=== PATIENT | female | born 1995 | race Hispanic/Latino ===

== ENCOUNTER 2019-01-02 14:26 | Inpatient (IN) | payer BC, OTHER ==
--- NOTE | ~2019-01-02 | OR ---
[facility] [address] [place], [place] [address] Draft DATE OF OPERATION: 01/02/2019 SURGEON: Simone Hurley DO PREOPERATIVE DIAGNOSES: 1. Intrauterine at 35 weeks. 2. Preeclampsia with severe features. 3. Unfavorable cervix. 4. Gestational diabetes mellitus, diet controlled. 5. Morbid obesity. POSTOPERATIVE DIAGNOSES: 1. Intrauterine at 35 weeks. 2. Preeclampsia with severe features. 3. Unfavorable cervix. 4. Gestational diabetes mellitus, diet controlled. 5. Morbid obesity. PROCEDURE PERFORMED: Primary low transverse delivery. CARD DEALER: Dereck King MD. ANESTHESIA: Spinal. ESTIMATED BLOOD LOSS: 500 cc. COMPLICATIONS: None. SPECIMENS: None. FINDINGS: Delivery of viable male in the PAYTON position. Weight 5 pounds 11 ounces with nuchal cord x2. Apgars of 6, 7, and 8. Normal uterus, tubes, and ovaries. PATIENT NAME: TOR BANKS OPERATIVE REPORT DATE OF : [birth year] REPORT #: [id number] PHYSICIAN: SIMONE HURLEY DO PCP: NO PRIMARY CARE PHYSICIAN REPORT IS CONFIDENTIAL AND NOT TO BE RELEASED WITHOUT AUTHORIZATION [facility] [address] [place], [place] [address] Draft INDICATIONS: Ms. Banks is a very pleasant 23-year-old G1, P0, white female with intrauterine at 35 weeks and 2 days gestation. She was diagnosed with preeclampsia without severe features one week ago and has been monitoring blood pressures and labs. She had no severe findings until she presented to the office today for routine OB visit. Severe blood pressures were noted. She was sent to Labor and Delivery, where the patient again had severe blood pressures that were controlled with IV labetalol. Cervix was closed, thick, and high. She was started on magnesium per protocol. We discussed options of protracted induction of labor versus primary low transverse delivery. The patient elects for primary . Risks, benefits, and alternatives were discussed in detail with the patient and family. All questions were answered to the best of my ability and the patient's apparent satisfaction. DESCRIPTION OF PROCEDURE: The patient was taken to the operating room. A time-out was performed to confirm correct patient, correct procedure. Spinal anesthesia was adequately established. The patient was prepped and draped in the supine position with a bump under her right hip. She received Ancef 3 g preoperatively and no heparin. Once confirming that the spinal was adequate, a Pfannenstiel skin incision was made 2 cm above the pubic symphysis. Incision was carried down to the fascia. The fascia was nicked in the midline and fascial incision was extended bilaterally using curved Mcgarry scissors. The fascia was grasped with hemostats, elevated, and the underlying rectus muscles dissected bluntly and sharply. The rectus muscles were divided in the midline. The peritoneum was grasped with hemostats, elevated, and entered sharply. Peritoneal incision was extended bilaterally using blunt and sharp dissection. The uterus was palpated and no pelvic or abdominal adhesions were noted. An Bubba self retractor was placed and lower uterine segment identified. Hysterotomy was made using a surgical scalpel and the amniotic sac was ruptured for clear fluid. Hysterotomy was extended bilaterally using blunt dissection. The surgeon's hand was placed in the uterus. The head elevated gently into the abdomen and nuchal cord x2 was identified after delivery with the assistance of fundal pressure. Nuchal cords were reduced without difficulty and remainder of the delivered with the assistance of fundal pressure. The was vigorous and cried at delivery, and cord clamping was performed and the handed to waiting pediatric team for further care. Cord blood was obtained for routine analysis and the placenta was manually expressed intact with a centrally inserted three-vessel cord. The uterus was cleared of any remaining products of conception and clot, and hysterotomy was then repaired using 0 Vicryl in a running locked manner. A 2nd imbricating stitch of 0 Vicryl was then applied in a vertical manner with good hemostasis and imbrication. The pelvis was irrigated and a small amount of bleeding was noted. This was made hemostatic with aotybn-pm-wugqy of 0 Vicryl and Bovie electrocautery. The tubes and ovaries were examined bilaterally and found to be normal. PATIENT NAME: TOR BANKS OPERATIVE REPORT DATE OF : [birth year] REPORT #: [id number] PHYSICIAN: SIMONE HURLEY DO PCP: NO PRIMARY CARE PHYSICIAN REPORT IS CONFIDENTIAL AND NOT TO BE RELEASED WITHOUT AUTHORIZATION [address] [address] Draft The Bubba self retractor was removed and the pelvis was irrigated again. Good hemostasis was appreciated. Peritoneum was then reapproximated using 2-0 Vicryl in a running nonlocked manner after application of an ACell sheet to the lower uterine segment. Rectus muscles were then reapproximated loosely with three interrupted stitches of 0 Vicryl. The rectus was examined, found to be hemostatic. ACell powder was applied and small amount of Taryn was also applied. Fascia was reapproximated with 0 Vicryl in a running nonlocked manner. Subcu was examined and a small amount of oozing was noted on the left edge. This was made hemostatic with Bovie electrocautery and Taryn. Subcu was then reapproximated using 2-0 Vicryl in a running nonlocked manner. Skin was then reapproximated using surgical hannah. The uterus was coude'd for a small amount of blood and the patient was taken to PACU in good and stable condition. Sponge, needle, and instrument count was correct x2 at the end of the procedure. Dr. King was present, participated in all portions of the procedure. Simone Hurley DO JHectorW/MODL /[id number] Copies: ~ PATIENT NAME: TOR BANKS OPERATIVE REPORT DATE OF : [birth year] REPORT #: [id number] PHYSICIAN: SIMONE HURLEY DO PCP: NO PRIMARY CARE PHYSICIAN REPORT IS CONFIDENTIAL AND NOT TO BE RELEASED WITHOUT AUTHORIZATION
--- NOTE | 2019-01-02 15:54 | PR ---
[facility] [address] [place], [place] [address] Signed Progress Notes IP Datetime Report Generated by ANOOP: 01/02/2019 15:54 PROGRESS NOTES: [id number] Impression: Reassuring heart rate Procedures: Sterile Vag Exam Plan: Continue present management; Deliver- Section Informed Consent Obtain: Section Delivery; Risks, Benefits and Alternatives Discussed VITAL SIGNS: [id number] Vital Signs: Reviewed; Within Normal Limits VS Notable Details: Severe BPs (unchanged compared to office readings) EXAM: [id number] Dilatation: closed Effacement: thick Station: -4 Uterine Contractions: None MEMBRANES: [id number] Comments: Pt doing well. No KATHLEEN, RUQ pain, or visual changes. BPs adequately controlled w/ one dose of labetalol 20mg IV. Magnesium running and wagner cath has been placed. Will continue to monitor bps per ACOG guidelines. Discussed options for route of delivery. While PreE with severe features does not exclude vaginal delivery as route of delivery, cervix is closed thick and high. IOL would likely be a several day process. Discussed risks/benefits, and patient desires primary LTCS. Risks include but are not limited to infection, bleeding, injury to surrounding GI structures, and risks to future pregnancies including abnormal placentation, uterine rupture, repeat , adhesive disease. All questions answered. Fetus A: [id number] FHR Baseline: 145 Variability: Moderate 6-25bpm Accelerations: None Decelerations: None FHR Category: Category I Presentation: Vertex Other Presentation: vtx by BS US Comments on Fetus A: No evidence of metabolic acidosis Fetus B: [id number] Signing Physician: Simone Hurley DO *Electronically Signed* 01/02/19 1554 SIMONE HURLEY DO PATIENT NAME: TOR COSBY PROGRESS NOTE DATE OF : 93 PHYSICIAN: SIMONE HURLEY DO RPT #: [id number] REPORT IS CONFIDENTIAL AND NOT TO BE RELEASED WITHOUT AUTHORIZATION [address] [place], [place] [address] Signed Copies: ~ *Electronically Signed* 01/02/19 [facility]4 SIMONE HURLEY DO PATIENT NAME: TOR COSBY PROGRESS NOTE DATE OF : 93 PHYSICIAN: SIMONE HURLEY DO RPT #: [id number] REPORT IS CONFIDENTIAL AND NOT TO BE RELEASED WITHOUT AUTHORIZATION
--- NOTE | 2019-01-02 18:53 | PR ---
[facility] [address] [place], [place] [address] Signed Progress Notes IP Datetime Report Generated by CPN: 01/02/2019 18:53 PROGRESS NOTES: [id number] Impression: Reassuring heart rate Procedures: Sterile Vag Exam Plan: Continue present management; Deliver- Section Informed Consent Obtain: Section Delivery VITAL SIGNS: [id number] Vital Signs: Reviewed; Within Normal Limits VS Notable Details: Severe BPs (unchanged compared to office readings) EXAM: [id number] Dilatation: closed Effacement: thick Station: -4 Uterine Contractions: None MEMBRANES: [id number] Comments: Pt seen and evaluated. Doing well. BPs well controlled. No KTAHLEEN, RUQ pain, or visual changes. Awaiting OR availability for delivery. Reviewed plan of care w/ pt and family. All questions answered Fetus A: [id number] FHR Baseline: 130 Variability: Moderate 6-25bpm Accelerations: 15X15 Decelerations: None FHR Category: Category I Presentation: Vertex Other Presentation: vtx by BS US Comments on Fetus A: No evidence of metabolic acidosis Fetus B: [id number] Signing Physician: Simone Hurley DO Copies: ~ *Electronically Signed* 01/02/191852 SIMONE HURLEY DO PATIENT NAME: TRO COSBY PROGRESS NOTE DATE OF : 93 PHYSICIAN: SIMONE HURLEY DO RPT #: [id number] REPORT IS CONFIDENTIAL AND NOT TO BE RELEASED WITHOUT AUTHORIZATION
--- NOTE | 2019-01-02 20:36 | PR ---
[facility] [address] [place], [place] [address] Signed Progress Notes IP Datetime Report Generated by CPN: 01/02/2019 20:36 PROGRESS NOTES: [id number] Impression: Reassuring heart rate Procedures: Sterile Vag Exam Plan: Deliver- Section Informed Consent Obtain: Section Delivery VITAL SIGNS: [id number] Vital Signs: Reviewed; Within Normal Limits VS Notable Details: Severe BPs (unchanged compared to office readings) EXAM: [id number] Dilatation: closed Effacement: thick Station: -4 Uterine Contractions: None MEMBRANES: [id number] Comments: Pt seen and examined. Doing well. No KATHLEEN, RUQ pain, visual changes. BPs well controlled. Reviewed C/S and anticipated course postop. All questions answered. Peds notified and will be present for delivery. Blood sugar 81. Fetus A: [id number] FHR Baseline: 130 Variability: Moderate 6-25bpm Accelerations: 15X15 Decelerations: None FHR Category: Category I Presentation: Vertex Other Presentation: vtx by BS US Comments on Fetus A: No evidence of metabolic acidosis Fetus B: [id number] Signing Physician: Simone Hurley DO Copies: ~ *Electronically Signed* 01/02/192035 SIMONE HURLEY DO PATIENT NAME: TOR COSBY PROGRESS NOTE DATE OF : 93 PHYSICIAN: SIMONE HURLEY DO RPT #: [id number] REPORT IS CONFIDENTIAL AND NOT TO BE RELEASED WITHOUT AUTHORIZATION
--- NOTE | 2019-01-02 22:27 | NUR ---
01/02/19 2227 Sheets,Kika 2212 PT ARRIVED TO PACU ON RA, PT DENIES NAUSEA AND PAIN. REPS EVEN AND UNLABORED. IV INFUSING WITH LR AND 20 OF PIT, MAG RUNNING ON PUMP AT 50 ML/HR. IV WNL. VSS.
--- NOTE | 2019-01-03 09:25 | PR ---
[facility] [address] [facility] [place], [place] [address] Signed PP Progress Notes Datetime Report Generated by CPN: 01/03/2019 09:25 SUBJECTIVE: [id number] Pain: Within normal limits Nausea/Vomiting: Denies Flatus: Yes Vital Signs: [id number] Vital Signs: Reviewed EXAM: [id number] Cardiovascular: Normal Respiratory: Normal Abdomen/Uterus: Normal Lochia: Normal Vulva/Perineum: Normal Breasts: Not Done CVA Tenderness: Normal Extremities: Normal Incision: Normal Progress: Not Applicable Exam Comments: Fundus firm U-2 nontender Incision healing well. IMPRESSION/PLAN/PROCEDURES: [id number] Impression: Normal progression Plan: Continue present management Progress Notes: Pt seen and examined. Doing well. Continues on magnesium and tolerating clear liquid diet. Olivares cath in place. has not ambulated, SCDs in place, and getting lovenox daily for DVT prevention. Mag levels therapeutic. Labs otherwise normal. No KATHLEEN, RUQ pain, or visual changes. Anticipate d/c mag 24 hr following delivery. Will monitor bps. May require Procardia XL if BPs stay 150's. Signing Physician: Simone Hurley DO Copies: ~ *Electronically Signed* 01/03/19 0978 SIMONE HURLEY DO PATIENT NAME: TOR COSBY PROGRESS NOTE DATE OF : 93 PHYSICIAN: SIMONE HURLEY DO RPT #: [id number] REPORT IS CONFIDENTIAL AND NOT TO BE RELEASED WITHOUT AUTHORIZATION
--- NOTE | 2019-01-04 08:56 | PR ---
[facility] [address] [place], [place] [address] Signed PP Progress Notes Datetime Report Generated by CPN: 01/04/2019 08:56 SUBJECTIVE: [id number] Pain: Within normal limits Nausea/Vomiting: Denies Flatus: Yes Bowel Movement: No Vital Signs: [id number] Vital Signs: Reviewed Notable Details: BPs stable with Procardia XL 30mg daily EXAM: [id number] Cardiovascular: Normal Respiratory: Normal Abdomen/Uterus: Normal Lochia: Normal Vulva/Perineum: Not Done Breasts: Not Done CVA Tenderness: Normal Extremities: Normal Incision: Normal Progress: Abnormal Exam Comments: Fundus firm U-1 nontender (limited by obesity). Incision well healing without erythema / edema. LE 2+ edema bilaterally IMPRESSION/PLAN/PROCEDURES: [id number] Impression: Normal progression Other Impression: PreE w/ severe features - improving Plan: Continue present management Progress Notes: Pt seen and examined. Doing well. Tolerating full diet. Olivares cath about to be removed, and pt will start ambulating. Pain and lochia minimal. was transferred but per pt, will be discharged today and will be rejoining pt. No KATHLEEN, RUQ pain, or visual changes. Mag d/c'd yesterday pm. Will continue to monitor pt, work with , and anticipate d/c home tomorrow. Signing Physician: Simone Hurley DO Copies: ~ *Electronically Signed* 01/04/19 0856 SIMONE HURLEY DO PATIENT NAME: TOR COSBY PROGRESS NOTE DATE OF : 93 PHYSICIAN: SIMONE HURLEY DO RPT #: [id number] REPORT IS CONFIDENTIAL AND NOT TO BE RELEASED WITHOUT AUTHORIZATION
--- NOTE | 2019-01-05 09:08 | PR ---
[facility] [address] [place], [place] [address] Signed PP Progress Notes Datetime Report Generated by CPN: 01/05/2019 09:07 SUBJECTIVE: [id number] Pain: Within normal limits Nausea/Vomiting: Denies Flatus: Yes Bowel Movement: No Vital Signs: [id number] Vital Signs: Reviewed Notable Details: BPs stable with Procardia XL 30mg daily EXAM: [id number] Cardiovascular: Normal Respiratory: Normal Abdomen/Uterus: Normal Lochia: Normal Vulva/Perineum: Not Done Breasts: Not Done CVA Tenderness: Normal Extremities: Normal Incision: Normal Progress: Normal Exam Comments: Fundus firm U-1 nontender. Incision well healing. Slight edema @ most dependent part of panis. [place] in place. No s/sx wound infection IMPRESSION/PLAN/PROCEDURES: [id number] Impression: Normal progression; Induced Hypertension Other Impression: PreE w/ severe features - improving Plan: Discharge Progress Notes: Pt seen and examined. Doing well. Ambulating, voiding, and tolerating full diet. Pain and lochia minimal. Continues to pump w/ RN assistance. was not discharged yesterday as orginally planned and pt would like to travel to be with baby. BPs elevated this AM. No KATHLEEN, RUQ pain, visual changes. Will treat with procardia immediate release 10mg PO x 1 now, and increase dose of Procardia XL to 60mg daily. D/C once bps stable per protocol. F/U in office in 2 days for BP check and staple removal Signing Physician: Simone Hurley, DO Copies: *Electronically Signed* 01/05/19906 SIMONE HURLEY DO PATIENT NAME: TOR COSBY PROGRESS NOTE DATE OF : 93 PHYSICIAN: SIMONE HURLEY DO RPT #: [id number] REPORT IS CONFIDENTIAL AND NOT TO BE RELEASED WITHOUT AUTHORIZATION [address] [place] [address] Signed ~ *Electronically Signed* 01/05/19906 HURLEY,SIMONE Young DO PATIENT NAME: TOR COSBY PROGRESS NOTE DATE OF : 93 PHYSICIAN: SIMONE HURLEY DO RPT #: [id number] REPORT IS CONFIDENTIAL AND NOT TO BE RELEASED WITHOUT AUTHORIZATION
--- NOTE | 2019-01-05 13:38 | EKG ---
[facility] [address] [facility] [place], [place] [address] Signed Sinus tachycardia Abnormal ECG No previous ECGs available Confirmed by AIDE FELTON DO ([id number]) on 01/05/2019 1:38:20 PM Electronically Signed By: AIDE FELTON DO 01/05/19 1338 PATIENT NAME: TOR COSBY Electrocardiogram DATE OF : [birth year] PHYSICIAN: AIDE FELTON DO REPORT #: [id number] REPORT IS CONFIDENTIAL AND NOT TO BE RELEASED WITHOUT AUTHORIZATION
--- NOTE | 2019-01-06 09:33 | PR ---
[facility] [address] [place], [place] [address] Signed PP Progress Notes Datetime Report Generated by CPN: 01/06/2019 09:33 SUBJECTIVE: [id number] Pain: Within normal limits Nausea/Vomiting: Denies Flatus: Yes Bowel Movement: No Vital Signs: [id number] Vital Signs: Reviewed; Within Normal Limits Notable Details: BPs much improved w/ Procardia XL 60mg EXAM: [id number] Cardiovascular: Normal Respiratory: Normal Abdomen/Uterus: Normal Lochia: Normal Vulva/Perineum: Not Done Breasts: Not Done CVA Tenderness: Normal Extremities: Normal Incision: Normal Progress: Not Applicable Exam Comments: Fundus Firm U-2 nontender. Incision well healing w/ hannah in place. IMPRESSION/PLAN/PROCEDURES: [id number] Impression: Normal progression; Induced Hypertension Other Impression: PreE w/ severe features - improving Plan: Discharge Progress Notes: Pt seen and examined. Doing well. Ambulating, voiding, and tolerating full diet. Pain and lochia minimal. Continues to pump w/ RN assistance. Anticipated d/c yesterday, but BPs became signficiantly elevated and required multiple doses of immediate release procardia. BPs improved w/ Procardia XL 60mg. Will d/c home today. F/U in 2 days in office for BP check and staple removal. Signing Physician: Simone Hurley DO Copies: ~ *Electronically Signed* 01/06/19 0980 SIMONE HURLEY DO PATIENT NAME: TOR COSBY PROGRESS NOTE DATE OF : 93 PHYSICIAN: SIMONE HURLEY DO RPT #: [id number] REPORT IS CONFIDENTIAL AND NOT TO BE RELEASED WITHOUT AUTHORIZATION
== END 2019-01-06 10:25 | disposition home or self-care (01) | DRG 788 ==
LOC: FBCO 14:26 → FBC 15:16
PROVIDERS: ADMIT Obstetrics & Gynecology
PROC: 10D00Z1 Extraction of Products of Conception, Low, Open Approach (ICD-10-PCS; principal; 2019-01-02 20:43)
DX: O14.14 Severe pre-eclampsia complicating childbirth (principal); O60.13X0 Preterm labor second trimester with preterm delivery third trimester, not applicable or unspecified; Z3A.35 35 weeks gestation of pregnancy; Z37.0 Single live birth; O24.420 Gestational diabetes mellitus in childbirth, diet controlled; O36.63X0 Maternal care for excessive fetal growth, third trimester, not applicable or unspecified; O69.81X0 Labor and delivery complicated by cord around neck, without compression, not applicable or unspecified; O99.214 Obesity complicating childbirth; E66.01 Morbid (severe) obesity due to excess calories
CPT/HCPCS: 01961; 36415; 80053; 82565; 83735; 84450; 84520; 84550; 85025; 86850; 86900; 86901; 93005; 93010; J0690; J1650; J1885; J2274; J2370; J2590; J2765; J3475; J7120